=== PATIENT | male | born 1995 | race Caucasian/White ===

== ENCOUNTER 2020-10-30 00:47 | Emergency (ER) | payer OTHER ==
[2020-10-30] MEDS ORDERED: MEDROL 4MG DOSEP4 MG PO (04:21)
[2020-10-30] MEDS ORDERED: IBUPROFEN800 MG PO (04:21)
[2020-10-30] MEDS ORDERED: CYCLOBENZAPRINE10 MG PO (04:21)
[2020-10-30] MEDS ORDERED: NORCO 5-325 TA1 EACH PO (04:21)
== END 2020-10-30 04:38 | disposition home or self-care (01) ==
LOC: FER 00:47
DX: S40.021A Contusion of right upper arm, initial encounter (principal); S40.022A Contusion of left upper arm, initial encounter; S60.221A Contusion of right hand, initial encounter; S50.811A Abrasion of right forearm, initial encounter; V49.40XA Driver injured in collision with unspecified motor vehicles in traffic accident, initial encounter; Y92.410 Unspecified street and highway as the place of occurrence of the external cause
CPT/HCPCS: 71045; 73030; 73060; 73110